=== PATIENT | male | born 1955 | race Caucasian/White ===

== ENCOUNTER 2025-05-16 06:21 | Day surgery (SDC) | payer MEDICARE, OTHER, SELFPAY | END 2025-05-16 12:36 | disposition home or self-care (01) | LOC: GI 06:21 | PROVIDERS: ATTENDING PHYSICIAN Internal Medicine Gastroenterology | DX: Z12.11 Encounter for screening for malignant neoplasm of colon (principal); K51.40 Inflammatory polyps of colon without complications; K64.9 Unspecified hemorrhoids; Z86.0100 Personal history of colon polyps, unspecified; Z80.0 Family history of malignant neoplasm of digestive organs | CPT/HCPCS: 45380; 88305 ==